=== PATIENT | female | born 1945 | race Caucasian/White ===

== ENCOUNTER 2024-09-10 02:12 | Inpatient (IN) | payer MEDICARE ==
[~2024-09-10] VITALS: Ht 157.5 cm; Wt 69.0 kg
[~2024-09-10 02:12] MED LIST: PANT40SU2 PO
--- NOTE | 2024-09-10 02:34 | Physician Documentation ---
History of Present Illness ~ Chief Complaint: Stroke Alert Stated Complaint: FALL Time Seen by MD: 02:31 Primary Medical Doctor: none HPI Patient presents to the emergency room for evaluation after fall. She states she was walking when her left knee gave out striking her chest on the wooden floor. She also endorses weakness in her left lower extremity left upper extremity and slurred speech onset three days ago. She does not take any medicines and denies any past medical history Medication Reconciliation Allergies: Coded Allergies: No Known Allergies (Unverified , 06/20/13) Scheduled Pantoprazole Sodium (Protonix), 40 MG PO BID Past Medical History Past Medical History: Gastritis, Anemia Past Surgical History: no surgical history Lives In: Home Review of Systems ROS All review of systems negative except as per HPI Physical Exam Vital Signs: Temperature: 97.8, Source: Oral, Heart Rate: 74, Respiratory Rate: 18, BP: 137/94, Pulse Oximetry: 96, Weight: 69.000 General Appearance General: Patient is awake, alert, oriented x4 in no acute distress Head: Normocephalic and atraumatic. Eyes: Conjunctival normal. EOMI. PERRL. ENT: Mucous membranes moist. Slurred speech, left facial droop Neck: Supple, trachea is midline. Chest: Clear to auscultation bilaterally without rales, rhonchi, or wheezes. There is no accessory muscle use or retractions. Tenderness to palpation to central chest Cardiac: RRR without murmurs, gallops, or rubs. Neuro: Slurring of speech and left facial droop Progress Results/Orders Results/Orders Orders - ADAN MORAES MD Electrocardiogram (09/10/24 02:31) Type And Screen (09/10/24 02:31) Urinalysis, Cult If Indicated (09/10/24 02:31) Chest,Single View (09/10/24 02:35) Ct Stroke Alert (09/10/24 02:50) * Vital Signs Routine* [id number] (09/10/24 02:31) * Blood Glucose Assessment * ONCE (09/10/24 02:31) * Npo Until Passed Bedside Swa (09/10/24 02:31) Nursing Swallow Screen (09/10/24 02:31) Hs Troponin I W Calculations (09/10/24 04:32) Hs Troponin I W Calculations (09/10/24 05:32) Completed Orders - ADAN MORAES MD Cbc/Diff (09/10/24 02:31) BMP (09/10/24 02:31) Pt Inr (09/10/24 02:31) PTT (09/10/24 02:31) Chest,Single View (09/10/24 02:35) Ct Stroke Alert (09/10/24 02:50) Hs Troponin I W Calculations (09/10/24 02:32) Vital Signs 09/10/24 09/10/24 09/10/24 02:19 02:59 02:59 Temp 97.8 Pulse 74 79 Resp 18 15 16 B/P (MAP) 137/94 137/94 Pulse Ox 96 96 Laboratory Tests Test 09/10/24 02:38 White Blood Count 6.9 Red Blood Count 4.94 Hemoglobin 15.6 Hematocrit 45.0 Mean Corpuscular Volume 91.1 Mean Corpuscular Hemoglobin 31.5 H Mean Corpuscular Hemoglobin Concent 34.6 Red Cell Distribution Width 14.3 Platelet Count 239 Mean Platelet Volume 8.1 Neutrophils (%) (Auto) 82.7 H Lymphocytes (%) (Auto) 10.5 L Monocytes (%) (Auto) 4.4 Eosinophils (%) (Auto) 1.5 Basophils (%) (Auto) 0.9 Neutrophils # (Auto) 5.7 Lymphocytes # (Auto) 0.7 L Monocytes # (Auto) 0.3 Eosinophils # (Auto) 0.1 Basophils # (Auto) 0.1 CBC Comment Prothrombin Time 10.4 INR International Normalized Ratio 1.0 Activated Partial Thromboplast Time 25 Coagulation Comments Sodium Level 144 Potassium Level 3.3 L Chloride Level 106 Carbon Dioxide Level 29.5 Anion Gap 9 Blood Urea Nitrogen 11 Creatinine 1.31 H Estimated GFR/1.73 m2 39 BUN/Creatinine Ratio 8.4 L Glucose Level 135 H Calcium Level 9.2 Troponin I High Sensitivity 12 Albumin 3.8 Chemistry Comments Medical Decision Making Findings Patient presented to the emergency room with fall with resulting chest pain as well as stroke-like symptoms onset three days ago. Differentials include but are not limited to ACS, stroke, Art's palsy, musculoskeletal pain, pneumothorax therefore emergent labs and imaging indicated. CT scan negative. Tele neurology consulted recommends admission and MRI. Departure Admitted to Inpatient Unit: yes, to hospitalist Impression: Primary Impression: Cerebral infarction Additional Impression: Chest wall pain Condition: Guarded Referrals: NO PRIMARY CARE PROVIDER (PCP) Critical Care Note Total Time (mins): 45 Critical Care Note The very real possibility of a deterioration of this patient's condition required the highest level of my preparedness for sudden, emergent intervention. I provided critical care services, which included medication orders, frequent reevaluations of the patient's condition and response to treatment, ordering and reviewing test results, and discussing the case with various consultants. Excludes time spent performing separately billable procedures. The critical care time associated with the care of the patient was 45 minutes not counting procedures Signature Scribe Signature: No scribe Attestation: The note accurately reflects work and decisions made by me.Adan Moraes MD 09/10/24 03:18 ADAN MORAES MD Sep 10, 2024 02:34
[2024-09-10 02:45] LABS: MEAN PLATELET VOLUME 8.1 FL (7.4-10.4); RED CELL DISTRIBUTION WIDTH 14.3 % (11.5-14.5)
[2024-09-10 02:53] LABS: CREATININE 1.31 MG/DL (0.40-0.90); TOTAL CARBON DIOXIDE 29.5 MMOL/L (24-32); eCRCL 28 ML/MIN; eGFR 39 ML/MIN
[2024-09-10 02:57] LABS: APTT 25 SECONDS (22-32); INR 1.0 INR
--- NOTE | 2024-09-10 03:11 | RADIOLOGY REPORT ---
CHEST RADIOGRAPH Indication: Stroke Alert Technique: Single frontal view of the chest was obtained COMPARISON: None FINDINGS: Lines and Tubes: None Lungs: Clear Pleura: No effusion. No pneumothorax. Cardiomediastinal contours: Cardiomegaly. Bones: Unremarkable IMPRESSION: 1. No acute disease. Cardiomegaly.
--- NOTE | 2024-09-10 03:11 | RADIOLOGY REPORT ---
EXAM: CT CT STROKE ALERT INDICATION: slurred speech, LUE weakness TECHNIQUE: CT of the head without intravenous contrast. Radiation Dose : 1. Head: CT Dose: CTDI volume is 52.67 mGy. Dose-length product is 941.43 mGy*cm The dose indicators for CT are the volume Computed Tomography (CT) Dose Index (CTDIvol) and the Dose Length Product (DLP), and are measured in units of mGy and mGy-cm, respectively. These indicators are not patient dose, but values generated from the CT scanner acquisition factors. The report includes radiation exposure data for exposures received during this examination. COMPARISON: None FINDINGS: There is no evidence of acute intracranial hemorrhage, extra-axial collection, mass effect, midline s hift, herniation or hydrocephalus. Focal medial left occipital encephalomalacia likely related to a remote insult. The ventricles, sulci and cisterns are age appropriate. The hills-white differentiation is intact. Patchy periventricular and subcortical white matter hypoattenuation is nonspecific but may be related to small vessel ischemic disease. The visualized paranasal sinuses and mastoid air cells are clear. The surrounding soft tissues and osseous structures are unremarkable. IMPRESSION: 1. No acute intracranial abnormality. 2. Focal medial left occipital encephalomalacia secondary to remote insult. Radiation optimization: All CT scans at this facility use at least one of these dose optimization allison hniques: automated exposure control mA and/or kV adjustment per patient size (includes targeted exam s where dose is matched to clinical indication) or iterative reconstruction.
[2024-09-10] MEDS ORDERED: potassium Cl 20 mEq SR tablet PO PRN (03:30)
[2024-09-10] MEDS ORDERED: bisacodyl 10mg suppository rectal RC PRN (03:30)
[2024-09-10] MEDS ORDERED: HYDROcodone/acetaminophen 10/325mg tab PO PRN (03:30)
[2024-09-10] MEDS ORDERED: HYDROmorphone inj. 0.5 MG/0.5 ML DISP.SYRIN IV PRN (03:30)
[2024-09-10] MEDS ORDERED: magnesium Cl slow-release 64mg tablet PO PRN (03:30)
[2024-09-10] MEDS ORDERED: magnesium sulf-water 4G/100mL 100 ML IV PRN (03:30)
[2024-09-10] MEDS ORDERED: HYDROcodone/acetaminophen 5mg/325mg tablet PO PRN (03:30)
[2024-09-10] MEDS ORDERED: mag hydrox/Alum hydrox/simeth 30ml oral suspension PO PRN (03:30)
[2024-09-10] MEDS ORDERED: magnesium sulf-water 2g/50mL 50 ML IV PRN (03:30)
[2024-09-10] MEDS ORDERED: potassium Cl 40MEQ/1/2NS 520ml 520 ML IV PRN (03:30)
[2024-09-10] MEDS ORDERED: clopidogrel 300mg tablet PO ONE (03:35)
--- NOTE | 2024-09-10 03:49 | [facility] CONSULT REPORT ---
[facility] Procedure [facility] Procedure Note Consult [facility] Note # Demographics Consult Type: Acute Stroke Level 2 (4.5-24 hrs) Patient Location: Emergency Room First Name: AGUSTIN Last Name: DOMINGA Date of : 1945 Age: 79 Gender: Female Facility: [facility] Time of Initial Page (): 09/10/2024 03:05 Time of Return Call (): 09/10/2024 03:05 # HPI History: LKN- 3 days Patient coming to the ER for chest pain. Patient also had slurred speech, face drooping, and left upper extremity weakness. # Scores Time of exam and NIHSS (): 09/10/2024 03:34 Level of Consciousness 1a: [0] = Alert; keenly responsive LOC Questions 1b: [0] = Answers both questions correctly LOC Commands 1c: [0] = Performs both tasks correctly Best Gaze 2: [0] = Normal Visual 3: [0] = No visual loss Facial Palsy 4: [1] = Minor paralysis Motor Arm Left 5a: [1] = Drift Motor Arm Right 5b: [0] = No drift Motor Leg Left 6a: [1] = Drift Motor Leg Right 6b: [0] = No drift Limb Ataxia 7: [0] = Absent Sensory 8: [0] = Normal Best Language 9: [0] = No aphasia Dysarthria 10: [1] = [id number] dysarthria Extinction and Inattention 11: [0] = No abnormality NIHSS Total: 4 # Assessment Impression: - Ischemic Stroke (Acute) # Plan Thrombolytic/Intervention: NOT IV Thrombolysis or IA Intervention candidate Thrombolytic Exclusion: > 4.5 hours Intraarterial Exclusion: - other LKN- 3 days ago, low GFR Target Blood Pressure: - SBP < 180 - SBP > 140 Labs: - hemoglobin A1c - lipid panel - comprehensive metabolic panel - CBC Imaging: (urgency: routine): - MRI Brain without contrast - MR Angiogram Neck with contrast - MR Angiogram Head without contrast Diagnostic Test: - echo without bubble study Therapy/Evaluation: - NPO until swallow evaluation - PT/OT evaluation Medication: - aspirin 81 mg PLUS clopidogrel (Plavix) 75 mg for 21 days, then monotherapy therafter - start statin with goal of LDL < 70 Other: - If patient has any neurological deterioration please call me back immediately - permissive hypertension - LDL < 70 - telemetry monitoring - will need event monitor or loop recorder as outpatient if atrial fibrillation not found as inpatient - neurology referral as outpatient - I have discussed my recommendations with the referring provider Disposition: admit # Logistics Attestation of consult completion: The patient is located at: [facility]. Facility staff participated in the visit. I performed this telemedicine visit from my offsite office utilizing interactive 2 way audio and visual telecommunication technology. Total time spent in telemedicine encounter: I spent 15 minutes reviewing clinical data and/or imaging, obtaining history, examining the patient, communicating with the onsite care team, and in preparation of this report. # Demographics First Name: AGUSTIN Last Name: DOMINGA Facility: [facility] Neuro Consult Order placed for: Yes KEITH BECK MD Sep 10, 2024 03:49
[2024-09-10] MEDS: PERFLUTREN PROTEIN-A MICROSPHR (Optison) 0.22 MG/ML 3ML VIAL IV ONE (03:56)
[2024-09-10] MEDS: normal saline 1000ml 1,000 ML IV SCH (03:56)
[2024-09-10] MEDS ORDERED: hydrALAZINE 20mg/ml inj. IV PRN (04:00)
[2024-09-10 04:04] LABS: PRO BRAIN NATRIURETIC PEPTIDE 1636 PG/ML (0-450)
[2024-09-10] MEDS: hydrALAZINE 20mg/ml inj. IV PRN (04:10)
[2024-09-10] MEDS: ondansetron/PF 4mg/2ml inj IV PRN (04:24)
--- NOTE | 2024-09-10 04:28 | HISTORY AND PHYSICAL-Residence ---
History & Physical Providers to CC Resident Creating Document: LUIS ALBERTO PABON, RES ~ History of Present Illness Primary Medical Doctor: none Reason for Admit\Complaint: Stroke-like symptoms History of Present Illness This is a 79-year-old female with a history of GI bleed presents to the ED with a chief complaint of stroke-like symptoms and ground level fall today. Patient states that three days ago she developed slurring of speech, left upper extremity and lower extremity weakness. This morning she also gave about her left knee and had a mechanical ground level fall. She fell on her chest and has some chest wall pain associated with the fall. She did not hit her head or lose consciousness and is not on any blood thinners. She denies any shortness of breath, palpitations, dizziness or syncope. She is able to tell the date, time, place, spell words, perform calculations, recall the name of president, her date of . However she is not able to swallow yet, and had a near choking episode during evaluation. Patient denies any history of TIA, stroke, heart attack, hypertension, atrial fibrillation. She does not have a PCP and lives alone at home, ambulates independently. She does not have any next of kin. ED course: EKG showed atrial fibrillation with RVR, this is new onset and does not have a history of atrial fibrillation and does not take any medications or blood thinners for it. Her blood pressure was over 220/110 mmHg in the ED throughout. Tele neurology was consulted and they recommended aspirin and Plavix for 21 days, MRI, MRA and blood pressure target range between 140-[address] did not show any acute intracranial abnormalities but did show some left occipital encephalomalacia related to remote stroke. Allergies: Coded Allergies: No Known Allergies (Unverified , 06/20/13) Home Medications Home Medications Active Protonix (Pantoprazole Sodium) 40 Mg Suspdr.pkt 40 Mg PO BID 30 Days Past Medical History Past Medical History GI bleed Past Surgical History Surgical History Comment None Past Social History Social History Comment Smokes about one pack every 2-3 days since the last 4-5 years, denies any alcohol or drug use Lives In: Home ROS ROS Reviewed and found negative except for the pertinent positives in HPI Exam Vitals: Vital Signs Date Time Temp Pulse Resp B/P (MAP) Pulse Ox O2 Delivery O2 Flow Rate FiO2 09/10/24 04:10 87 09/10/24 03:45 97.8 25 228/105 (325) 96 General: General: Patient is awake, alert, oriented x4 in no acute distress Head: Normocephalic and atraumatic. Eyes: Conjunctival normal. EOMI. PERRL. ENT: Mucous membranes moist. Slurred speech, left facial droop Neck: Supple, trachea is midline. Chest: Clear to auscultation bilaterally without rales, rhonchi, or wheezes. There is no accessory muscle use or retractions. Tenderness to palpation to central chest Cardiac: RRR without murmurs, gallops, or rubs. Neuro: Slurring of speech and left facial droop. Motor strength is 3/5 in left side and 5/5 in the right side. Sensory examination is equal on both sides. Cranial nerve examination is normal. Diagnostic Data Last Recorded Lab Results: 09/10/2423709/10/248 Diagnostic Data: Laboratory Tests Test 09/10/24 02:38 Prothrombin Time 10.4 SECONDS (9.0-12.0) INR International Normalized Ratio 1.0 INR Activated Partial Thromboplast Time 25 SECONDS (22-32) Coagulation Comments Advance Care Planning Advanced Care plannin - 30 Minutes (I spent a total of 17 minutes on reviewing various resuscitative measures/ ACP with the patient at the time of admission. The patient has decided on a full code status) Additional Plan Acute CVA Ground level fall secondary to above Patient has left-sided facial droop, left-sided weakness. NIHSS score four. Motor strength 3/5 on left side and 5/5 on right side. Patient received aspirin 81 mg, Plavix 300 mg followed by aspirin 81 mg and Plavix 75 mg daily for 21 days Neurology recommends aspirin, Plavix, MRI, MRA, echo cardiogram. NPO till she passes bedside swallow evaluation. Physical therapy/occupational therapy CT head negative for acute intracranial abnormalities but shows left occipital encephalomalacia. No evidence of bleed on CT. Fall precautions in place. New onset atrial fibrillation EKG shows atrial fibrillation with RVR. Abhi Vasc score greater than two. Started the patient on metoprolol 25 mg p.o. daily and Eliquis 5 mg b.i.d. Severe hypertension Blood pressure is greater than 220/110 mmHg in the ED, patient received 5 mg IV hydralazine to keep the parameters between 140-180 mmHg as recommended by the neurologist. History of GI bleed Restart home medication Protonix in the view of aspirin causing recurrent GI bleed Code Status: Full code DVT Prophylaxis: Eliquis Analgesia/Sedation: Tylenol p.r.n. Lines/Tubes: PIV Gi Prophylaxis: Protonix Nutrition: NPO till bedside swallow evaluation PT: Yes Prognosis: Guarded Disposition: Admit to neuro floor with classroom monitor Luis Alberto Coffman MD Internal Medicine Resident PGY-2 Date of Service: Sep 10, 2024 Billing Provider: JESSICA HARDEN MD,LUIS ALBERTO COFFMAN, RES Sep 10, 2024 04:28 JESSICA HARDEN MD Sep 10, 2024 06:05
[2024-09-10 05:15] VITALS: BP 141/75; PULSE 95; RESP 15; TEMP 98.4; O2SAT 94
[2024-09-10] MEDS: docusate sod 100mg capsule PO SCH (07:18)
[2024-09-10] MEDS: potassium Cl 20 mEq SR tablet PO PRN (07:19)
[2024-09-10] MEDS: aspirin 81mg, enteric-coated 1 TAB TABLET.DR PO SCH (07:19)
[2024-09-10] MEDS: K and/or MAG REPLACEMENT MC SCH (07:30)
--- NOTE | 2024-09-10 07:47 | ELECTROCARDIOGRAPH REPORT ---
[facility] Test Date: 2024-09-10 Test Time: 02:35:05 Pat Name: AGUSTIN ORR Department: EMERGENCY ROOM Room: ORTHO [facility] A Gender: F Special Distribution Clerk: : 1945 Requested By: JOSÉ HAMILTON Order Number: [id number] Reading MD: Dr. Juan Miller Measurements Intervals [place] Rate: 97 P: 0 MT: 0 QRS: -31 QRSD: 110 T: 48 QT: 353 QTc: 449 Interpretive Statements Atrial fibrillation Ventricular premature complex Left axis deviation Anterior infarct, old Electronically Signed On 09-10-2024 8:05:[address] Juan Miller Please click the below link to view image of tracing.
[2024-09-10 08:00] VITALS: BP 124/68; PULSE 64
[2024-09-10] MEDS ORDERED: heparin, porcine 5000 units/ml vial SQ SCH (08:00)
[2024-09-10 10:00] VITALS: BP 137/80; PULSE 81; RESP 16; TEMP 97.7; O2SAT 93
--- NOTE | 2024-09-10 11:37 | [facility] NEURO CONSULT REPORT ---
[facility] Procedure Note [facility] Procedure Note Consult [facility] Note # Demographics Consult Type: Follow-Up Phone Call Patient Location: Inpatient First Name: Nichol Last Name: Diana Date of : 1945 Age: 79 Facility: [facility] Time of Initial Page ([place] ): 09/10/2024 11:27 Time of Return Call (): 09/10/2024 11:28 Phone Only Consult: 79-year-old female with a history of arthritis, presented with stroke-like symptoms, including left upper and lower extremity weakness. She experienced a fall at home, which prompted her hospital visit. Upon arrival, her blood pressure was notably elevated at 220 mmHg. The patient reported living alone and having difficulty affording her prescribed Eliquis medication, leading to non-adherence. Initial CT imaging ruled out an acute stroke, and an MRI was ordered for further evaluation. Her current NIHSS score is 4. The patient was initially started on aspirin and plavix by the prior teleneurologist. Recommendations: Patient doesn't need to be on ASA, Plavix and Eliquis. Please discontinue Plavix and hold off on Eliquis for now. Please wait for MRI brain wo to be done to assess size of infarct before starting Eliquis. OK to just continue with ASA 81 mg daily for now. Please call us back once MRI has been done. Phone Agreement: - phone consult deemed mutually sufficient for patient care # Plan Other: - If patient has any neurological deterioration please call me back immediately # Demographics First Name: Nichol Last Name: Diana Facility: [facility] Neuro Consult Order placed for: Yes ANDREA BAILEY MD Sep 10, 2024 11:37
--- NOTE | 2024-09-10 11:41 | RADIOLOGY REPORT ---
EXAM: CT CTA NECK/HEAD DATE OF SERVICE: 09/10/2024 10:14 AM ORDERING PHYSICIAN: BLAIR MCKEON REASON FOR EXAM: Stroke-like symptoms TECHNIQUE: CTA of the brain and neck was performed after the administration of contrast . Axial imag es of the head and neck are obtained. Coronal and sagittal images were then reformatted for review. M IP reformats were obtained and reviewed. 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 The right common carotid artery demonstrates moderate calcification of the right carotid bulb. Right internal carotid artery demonstrates no high-grade stenosis. Right middle cerebral artery demonstrates no high-grade stenosis. The right anterior cerebral artery demonstrates no high-grade stenosis. The left common carotid artery demonstrates no high-grade stenosis. There is mild calcification of th e left carotid bulb. Left internal carotid artery demonstrates no high-grade stenosis. The left middle cerebral artery demonstrates no high-grade stenosis. The left anterior cerebral artery demonstrates no high-grade stenosis. The right vertebral artery demonstrates 50% stenosis of the proximal right vertebral artery/V1 segmen t. The left vertebral artery demonstrates 50% stenosis of the proximal left vertebral artery at its orig in. Basilar artery demonstrates no high-grade stenosis. The bilateral posterior cerebral arteries demonstrate no high-grade stenosis. IMPRESSION: No large vessel high-grade stenosis of the anterior circulation. Moderate stenosis of the bilateral vertebral stenoses at the origins/proximally. 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
--- NOTE | 2024-09-10 12:53 | RADIOLOGY REPORT ---
MRI brain HISTORY: Stroke-like symptoms Comparison: CT brain 09/10/2024 TECHNIQUE: MR was performed with a surface coil at 1.5 T magnet. Sagittal, axial and coronal T1 and T 2-weighted images were obtained. FINDINGS: Small area of restricted diffusion in the lower right midbrain and garrick on diffusion-weigh wesley images. No areas of abnormal T2 star signal hypointensity on gradient echo images. There is an area of encephalomalacia in the left occipital lobe. Periventricular signal intensity carter nges probably due to gliosis from chronic ischemic small vessel disease. Gliosis also seen in the rig ht occipital lobe No hydrocephalus or midline shift Cortical sulcal markings are prominent. No extra-axial fluid collections Orbits paranasal sinuses sella and cerebellopontine angles unremarkable in appearance IMPRESSION: 1. Small area of acute ischemia and/or infarction upper right brainstem
--- NOTE | 2024-09-10 13:48 | [facility] NEURO CONSULT REPORT ---
[facility] Procedure Note [facility] Procedure Note Consult [facility] Note # Demographics Consult Type: Follow-Up Phone Call Patient Location: Inpatient First Name: DOMINGA Last Name: AGUSTIN Date of : 1945 Age: 79 Gender: Female Facility: [facility] Time of Initial Page ([place] ): 09/10/2024 13:39 Time of Return Call ([place] Time): 09/10/2024 13:40 Phone Only Consult: 79-year-old female with a history of arthritis, presented with stroke-like symptoms, including left upper and lower extremity weakness. MRI Brain wo showed a small acute infarct involving the right midbrain and garrick. Recommendations: Plavix has been stopped. Patient is on ASA 81 mg daily. She does have atrial flutter so needs to be on anticoagulation. Was previously on Eliquis but stopped it due to cost reasons. If patient cannot afford NOAC then would choose Warfarin/Coumadin. Still continue with ASA while on anticoagulation. She has significant atherosclerosis in her arteries and would likely benefit from ASA as well. If she can afford NOAC, then Eliquis is fine a nd continue with ASA. Phone Agreement: - phone consult deemed mutually sufficient for patient care # Plan Other: - If patient has any neurological deterioration please call me back immediately # Demographics First Name: DOMINGA Last Name: AGUSTIN Facility: [facility] Neuro Consult Order placed for: Yes ANDREA BAILEY MD Sep 10, 2024 13:48
[2024-09-10 18:00] VITALS: BP 130/72; PULSE 61; RESP 14; TEMP 97.8; O2SAT 92
--- NOTE | 2024-09-10 18:02 | PROGRESS NOTE- Residence ---
Progress Note - Resident Providers to CC Resident Creating Document: LIVIER BEDOLLA RES ~ Antibiotic Timeout Antibiotic Ordered?: No Subjective Patient was seen and examined at the bedside. Patient is still has a left facial droop and slurring of speech. Objective Vital Signs Date Time Temp Pulse Resp B/P (MAP) Pulse Ox O2 Delivery O2 Flow Rate FiO2 09/10/24 08:00 Room Air 09/10/24 08:00 64 124/68 (86) 09/10/24 05:15 98.4 15 94 Result Diagram: 09/10/24 0238 09/10/24 0506 General: Patient is awake, alert, oriented x4 in no acute distress Head: Normocephalic and atraumatic. Eyes: Conjunctival normal. EOMI. PERRL. ENT: Mucous membranes moist. Slurred speech, left facial droop Neck: Supple, trachea is midline. Chest: Clear to auscultation bilaterally without rales, rhonchi, or wheezes. There is no accessory muscle use or retractions. Tenderness to palpation to central chest Cardiac: RRR without murmurs, gallops, or rubs. Neuro: Slurring of speech and left facial droop. Motor strength is 4/5 in left side and 5/5 in the right side. Sensory examination is equal on both sides. Cranial nerve examination is normal. Coagulation Studies Laboratory Tests Test 09/10/24 02:38 Prothrombin Time 10.4 SECONDS (9.0-12.0) INR International Normalized Ratio 1.0 INR Activated Partial Thromboplast Time 25 SECONDS (22-32) Coagulation Comments Advance Care Planning Advanced Care plannin - 30 Minutes Assessment Assessment This is a 79-year-old female with a history of GI bleed and Afib presents to the ED with a chief complaint of stroke-like symptoms and ground level fall today. Plan Plan Acute Ischemic CVA Patient has left-sided facial droop, left-sided weakness. NIHSS score-4. Motor strength 4/5 on left side(better compared to yesterday) and 5/5 on right side. Patient passed her swallow test today. CT head negative for acute intracranial abnormalities but shows left occipital encephalomalacia. No evidence of bleed on CT. Head/Neck CT: No large vessel high-grade stenosis of the anterior circulation. Moderate stenosis of the bilateral vertebral stenoses at the origins/proximally. Head MRI: Small area of acute ischemia and/or infarction upper right brainstem ECHO with bubble study was done and reports showed EF of 65% and no left to right flow,ruling out PTO Neurology team was consulted and recommended to continue the patient on aspirin 81mg and Eliquis 5mg BID. Aspirin was added due to atherosclerotic changes in the brain as per Neurologist recommendation. Atrial fibrillation EKG shows atrial fibrillation with RVR. Abhi-Vasc score-4 Neurologist recommended patient to be on aspirin and Eliquis. Ground level fall secondary to CVA Patient has a slight chest pain due to the fall. Physical therapy has been working with the patient Fall precautions in place. Hypertension urgency Blood pressure is greater than 220/110 mmHg in the ED, patient received 5 mg IV hydralazine to keep the parameters between SBP 140-180 mmHg as recommended by the neurologist Patient's blood pressure is controlled. Hydralazine has been discontinued the patient is on amlodipine 5mg P.O History of GI bleed Home medication protonix to be continued in the view of aspirin causing recurrent GI bleed Kidney disease Eval for OLE with daily metabolic panels Code Status: Full code DVT Prophylaxis: Eliquis Analgesia/Sedation: Tylenol p.r.n. Lines/Tubes: PIV Gi Prophylaxis: Protonix Nutrition: Heart healthy diet PT: Yes Prognosis: Guarded Disposition:Patient has been recommended to go to the rehab by physical therapy. Livier Bedolla MD Internal Medicine Resident PGY-1 Date of Service: Sep 10, 2024 Billing Provider: BLAIR MCKEON DO Common Visit Codes: NOT BILLABLE (Admitted after midnight to be billed by physical science professor) LIVIER BEDOLLA, RES Sep 10, 2024 18:02 BLAIR MCKEON DO Sep 10, 2024 19:18
[2024-09-10 22:00] VITALS: BP 176/95; PULSE 76; RESP 20; TEMP 98; O2SAT 95
[2024-09-11] VITALS (7 sets, daily range): BP systolic 127–212; BP diastolic 74–158; PULSE 70–89; RESP 14–18; TEMP 97.6–98.4; O2SAT 93–95
[2024-09-11 05:21] LABS: LEUKOCYTE ESTERASE ,URINE NEGATIVE (Neg); NITRITES, URINE NEGATIVE (Neg); OCCULT BLOOD,URINE NEGATIVE (Neg)
[2024-09-11 05:26] LABS: MEAN PLATELET VOLUME 8.3 FL (7.4-10.4); RED CELL DISTRIBUTION WIDTH 14.5 % (11.5-14.5)
[2024-09-11 05:37] LABS: CHOL/HDL RATIO 3.8 (0.00-4.99); CREATININE 0.89 MG/DL (0.40-0.90); LDL CHOLESTEROL 96 MG/DL (50-100); TOTAL CARBON DIOXIDE 25.9 MMOL/L (24-32); eCRCL 41 ML/MIN; eGFR 61 ML/MIN
[2024-09-11 05:40] LABS: UA COLLECTION TYPE CLN CATCH MIDSTREAM
[2024-09-11] MEDS ORDERED: PANT40GR PO (11:30)
--- NOTE | 2024-09-11 16:32 | CONSULTATION REPORT ---
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 History of present illness: This is a 79-year-old female with a history of GI bleed presents to the ED with three days of slurring of speech, left upper extremity and lower extremity weakness. On the morning of admission she also developed instability of the left knee and had a mechanical ground level fall. She fell on her chest and has some chest wall pain associated with the fall. She did not hit her head or lose consciousness and is not on any blood thinners. She denies any shortness of breath, palpitations, dizziness or syncope. She is able to tell the date, time, place, spell words, perform calculations, recall the name of president, her date of . However she is not able to swallow yet, and had a near choking episode during evaluation. Patient denies any history of TIA, stroke, heart attack, hypertension, atrial fibrillation. She does not have a PCP and lives al one at home, ambulates independently. She does not have any next of kin. ED course: EKG showed atrial fibrillation with RVR, this is new onset and does not have a history of atrial fibrillation and does not take any medications or blood thinners for it. Her blood pressure was over 220/110 mmHg in the ED throughout. Tele neurology was consulted and they recommended aspirin and Plavix for 21 days, MRI, MRA and blood pressure target range between 140-[address] did not show any acute intracranial abnormalities but did show some left occipital encephalomalacia related to remote stroke. 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 There was no obvious thrombus in the aneurysm. An echocardiogram is pending at the time of dictation to evaluate for any intracardiac shunting or left atrial appendage thrombus, and there may be plans to anticoagulate with apixaban. Allergies: None Current medications: Notable for Losartan Amlodipine Low-dose aspirin Atorvastatin Past Medical History Past Medical History GI bleed Past Surgical History Surgical History Comment None Past Social History Social History Comment Smokes about one pack every 2-3 days since the last 4-5 years, denies any alcohol or drug use Lives In: Home ROS ROS Reviewed and found negative except for the pertinent positives in HPI. Neurology has plan for permissive hypertension with an upper systolic blood pressure goal of 160 mm Hg. Exam Vitals: Vital Signs Current systolic blood pressure is 180 mm Hg General: Patient is awake, alert, oriented x4 in no acute distress. Head: Normocephalic and atraumatic. Eyes: Conjunctival normal. EOMI. PERRL. ENT: Mucous membranes moist. Slurred speech, left facial droop Neck: Supple, trachea is midline. Chest: Clear to auscultation bilaterally without rales, rhonchi, or wheezes. There is no accessory muscle use or retractions. Tenderness to palpation to central chest Cardiac: RRR without murmurs, gallops, or rubs. Neuro: Slurring of speech and left facial droop. Motor strength is 3/5 in left side and 5/5 in the right side. Sensory examination is equal on both sides. Cranial nerve examination is normal. Assessment and plan: 1. No specific therapy, particularly invasive therapy, as indicated for an arch aneurysm of this small diameter. 2. Given the presence of extensive atherosclerosis, it is probably, although not absolutely lower risk for expansion as long as the patient's blood pressure is maintained less than at the time of her presentation. Recognizing that the neurology service has advocated some permissive hypertension, I would shoot for a systolic blood pressure goal of 140-150 mm Hg. 3. There is no contraindication that this aneurysm poses to starting anticoagulation, and the risk benefit of anticoagulation in the setting of atrial fibrillation and a cerebrovascular accident (without hemorrhage) is clearly in favor of anticoagulation. I very much appreciate this consultation opportunity. Visit Coding Cardiology Date of Service: Sep 11, 2024 Billing Provider: ISABELLE THEODORE Jr., MD Cardiology Evaluation and Smita: CONSULT ONLY Cardiology Consultation Codes: [id number] CONSULT <45MIN ISABELLE THEODORE Jr., MD Sep 11, 2024 16:32
--- NOTE | 2024-09-11 18:28 | PROGRESS NOTE- Residence ---
Progress Note - Resident Providers to CC Resident Creating Document: LIVIER BEDOLLA RES ~ Antibiotic Timeout Antibiotic Ordered?: No Subjective Patient was seen and examined at the bedside. Patient still has a left facial droop and slurring of speech. Objective Vital Signs Date Time Temp Pulse Resp B/P (MAP) Pulse Ox O2 Delivery O2 Flow Rate FiO2 09/11/24 10:00 98.4 77 16 160/88 (112) 95 Room Air Result Diagram: 09/11/249 09/11/249 General: Patient is awake, alert, oriented x4 in no acute distress Head: Normocephalic and atraumatic. Eyes: Conjunctival normal. EOMI. PERRL. ENT: Mucous membranes moist. Slurred speech, left facial droop Neck: Supple, trachea is midline. Chest: Clear to auscultation bilaterally without rales, rhonchi, or wheezes. There is no accessory muscle use or retractions. Tenderness to palpation to central chest Cardiac: RRR without murmurs, gallops, or rubs. Neuro: Slurring of speech and left facial droop. Motor strength is 4/5 in left side and 5/5 in the right side. Sensory examination is equal on both sides. Cranial nerve examination is normal. Coagulation Studies Laboratory Tests Test 09/10/24 02:38 Prothrombin Time 10.4 SECONDS (9.0-12.0) INR International Normalized Ratio 1.0 INR Activated Partial Thromboplast Time 25 SECONDS (22-32) Coagulation Comments Advance Care Planning Advanced Care plannin - 30 Minutes Assessment Assessment This is a 79-year-old female with a history of GI bleed and Afib presents to the ED with a chief complaint of stroke-like symptoms and ground level fall today. Plan Plan Acute Ischemic CVA Patient has left-sided facial droop, left-sided weakness. NIHSS score-4. Motor strength 4/5 on left side(better compared to yesterday) and 5/5 on right side. Patient passed her swallow test today. CT head negative for acute intracranial abnormalities but shows left occipital encephalomalacia. No evidence of bleed on CT. Head/Neck CT: No large vessel high-grade stenosis of the anterior circulation. Moderate stenosis of the bilateral vertebral stenoses at the origins/proximally. Head MRI: Small area of acute ischemia and/or infarction upper right brainstem ECHO with bubble study was done and reports showed EF of 65% and no left to right flow,ruling out PTO Neurology team was consulted and recommended to continue the patient on aspirin 81mg and Eliquis 5mg BID. Aspirin was added due to atherosclerotic changes in the brain as per Neurologist recommendation. Patient's IV fluids have been stopped and amlodipine has been increased to 10 mg. 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 Cardiothoracic surgeon was consulted and recommended outpatient follow up and that this is small and no intervention is required, according to his interpretation he feels that the aortic arch is well calcified with a goal of systolic blood pressure less than 140s however systolic blood pressure under 150s is acceptable. Atrial fibrillation EKG shows atrial fibrillation with RVR. Abhi-Vasc score-4 Patient continues to be on aspirin and Eliquis. Ground level fall secondary to CVA Patient has a slight chest pain due to the fall. Physical therapy has been working with the patient Fall precautions in place. Hypertension urgency Blood pressure is greater than 220/110 mmHg in the ED, patient received 5 mg IV hydralazine to keep the parameters between SBP 140-180 mmHg as recommended by the neurologist Patient's blood pressure is elevated and amlodipine dose has been increased to 10 mg. History of GI bleed Home medication protonix to be continued in the view of aspirin causing recurrent GI bleed Kidney disease Eval for OLE with daily metabolic panels Code Status: Full code DVT Prophylaxis: Eliquis Analgesia/Sedation: Tylenol p.r.n. Lines/Tubes: PIV Gi Prophylaxis: Protonix Nutrition: Heart healthy diet PT: Yes Prognosis: Guarded Disposition:Patient has been recommended to go to the rehab by physical therapy. Livier Bedolla MD Internal Medicine Resident PGY-1 Date of Service: Sep 11, 2024 Billing Provider: BLAIR MCKEON DO Common Visit Codes: [id number] INP/OBS CARE(HIGH) LIVIER BEDOLLA, RES Sep 11, 2024 18:28 BLAIR MCKEON DO Sep 11, 2024 19:54
[2024-09-12 02:00] VITALS: BP 159/93; PULSE 83; RESP 16; TEMP 98.2; O2SAT 94
[2024-09-12 05:45] LABS: CREATININE 1.01 MG/DL (0.40-0.90); TOTAL CARBON DIOXIDE 25.9 MMOL/L (24-32); eCRCL 36 ML/MIN; eGFR 53 ML/MIN
[2024-09-12 06:00] VITALS: BP 159/87; PULSE 68; RESP 18; TEMP 98.2; O2SAT 90
[2024-09-12 06:23] LABS: MEAN PLATELET VOLUME 8.4 FL (7.4-10.4); RED CELL DISTRIBUTION WIDTH 14.7 % (11.5-14.5)
[2024-09-12 08:00] VITALS: BP_SYST 145; BP_SYST 153; BP_SYST 158; BP_DIAS 72; BP_DIAS 93; PULSE 73; PULSE 76; PULSE 77; RESP 16; O2SAT 97
[2024-09-12 10:00] VITALS: BP 137/76; PULSE 74; RESP 16; TEMP 97.6; O2SAT 93
--- NOTE | 2024-09-12 10:54 | PROGRESS NOTE- Residence ---
Progress Note - Resident Providers to CC Resident Creating Document: HETAL MITCHELL RES CC: BENJAMÍN BEDOLLA MD ~ Antibiotic Timeout Antibiotic Ordered?: No Subjective Patient was seen and examined at the bedside. NAOE. No new c/o. Informed to the patient regarding the plan to go to rehab. Patient still has a left facial droop and slurring of speech. Objective Vital Signs Date Time Temp Pulse Resp B/P (MAP) Pulse Ox O2 Delivery O2 Flow Rate FiO2 09/12/24 10:00 97.6 74 16 137/76 (96) 93 Room Air Result Diagram: 09/12/24 0506 09/12/24 0506 General: Elderly female, seen sitting in the recliner, AAO x4, not in apparent distress Head: Normocephalic with an atraumatic Eyes: Pupils- 3mm, reacting to light, conjunctiva- anicteric Nose and throat: No polyps, septum- normal, no mucosal ulcers Neck: Supple, no lymphadenopathy, no carotid bruit Respiratory: No use of accessory muscles of respiration, Bilateral normal vesiscular breath sounds heard. No wheeze, rhochi or creps Cardiac: S1-S2 heard, rythm regular, no gallop/murmur Abdomen: non distended, no tenderness, no organomegaly, bowel sounds- heard Extremities: no clubbing, no pedal edema, no deformities, peripheral pulses- 2+ Skin: warm and dry, no rash, no purpura Neuro: Speech is slurred, left facial droop,Motor strength is 4/5 in left side and 5/5 in the right side Coagulation Studies Laboratory Tests Test 09/10/24 02:38 Prothrombin Time 10.4 SECONDS (9.0-12.0) INR International Normalized Ratio 1.0 INR Activated Partial Thromboplast Time 25 SECONDS (22-32) Coagulation Comments Assessment Assessment This is a 79-year-old female with a history of GI bleed and Afib presents to the ED with a chief complaint of stroke-like symptoms and ground level fall today. 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 NIHSS score-4. Motor strength 4/5 on left side(better compared to yesterday) and 5/5 on right side. Patient passed her swallow test today. CT head negative for acute intracranial abnormalities but shows left occipital encephalomalacia. No evidence of bleed on CT. Head/Neck CT: No large vessel high-grade stenosis of the anterior circulation. Moderate stenosis of the bilateral vertebral stenoses at the origins/proximally. Head MRI: Small area of acute ischemia and/or infarction upper right brainstem ECHO with bubble study was done and reports showed EF of 65% and no left to right flow,ruling out PTO Neurology team was consulted and recommended to continue the patient on aspirin 81mg and Eliquis 5mg BID. Aspirin was added due to atherosclerotic changes in the brain as per Neurologist recommendation. 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 Cardiothoracic surgeon was consulted and recommended outpatient follow up and that this is small and no intervention is required, according to his interpretation he feels that the aortic arch is well calcified with a goal of systolic blood pressure less than 140s however systolic blood pressure under 150s is acceptable. Atrial fibrillation EKG shows atrial fibrillation with RVR. Abhi-Vasc score-4 current HR under control Patient continues to be on aspirin and Eliquis. Ground level fall secondary to CVA Patient has a slight chest pain due to the fall. Physical therapy has been working with the patient Fall precautions in place. Hypertension urgency- resolved Blood pressure is greater than 220/110 mmHg in the ED, patient received 5 mg IV hydralazine to keep the parameters between SBP 140-180 mmHg as recommended by the neurologist continue amlodipine 10 mg once daily added losartan 25 mg once daily History of GI bleed Home medication protonix to be continued in the view of aspirin causing recurrent GI bleed OLE likely prerenal 2/2- resolved, 2/2 renal tubular stasis cr down to baseline monitor i/o chart Code Status: Full code DVT Prophylaxis: Eliquis Analgesia/Sedation: Tylenol p.r.n. Lines/Tubes: PIV Gi Prophylaxis: Protonix Nutrition: Heart healthy diet PT: Yes Prognosis: Guarded Disposition- dc to rehab tomorrow Hetal Mitchell MD IM resident PGY3, [facility] Date of Service: Sep 12, 2024 Billing Provider: BENJAMÍN BEDOLLA MD, HARIVARSHA, RES Sep 12, 2024 10:54
[2024-09-12 18:30] VITALS: BP 123/49; PULSE 100; RESP 17; TEMP 97.9; O2SAT 97
[2024-09-12 22:00] VITALS: BP 125/74; PULSE 74; RESP 16; TEMP 97.6; O2SAT 90
[2024-09-13 06:00] VITALS: BP 120/70; PULSE 59; RESP 16; TEMP 97.5; O2SAT 92
[2024-09-13 07:17] LABS: MEAN PLATELET VOLUME 8.4 FL (7.4-10.4); RED CELL DISTRIBUTION WIDTH 14.4 % (11.5-14.5)
[2024-09-13 07:51] LABS: CREATININE 1.07 MG/DL (0.40-0.90); TOTAL CARBON DIOXIDE 21.1 MMOL/L (24-32); eCRCL 34 ML/MIN; eGFR 50 ML/MIN
[2024-09-13 10:00] VITALS: BP 124/71; PULSE 77; RESP 16; TEMP 98.2; O2SAT 94
[2024-09-13] MEDS: magnesium hydroxide 30ml (MOM) UD suspension PO PRN (11:05)
--- NOTE | 2024-09-13 16:19 | DISCHARGE SUMMARY-Residence ---
Discharge Summary Providers to Resident Creating Document: ZAIDA BEDOLLA, RES ~ Discharge Summary Assessment This is a 79-year-old female with a history of GI bleed,Afib presents to the ED with a chief complaint of stroke-like symptoms and ground level fall today. Admission Diagnosis: Stroke-like symptoms Admission Diagnosis Comment: This is a 79-year-old female with a history of GI bleed presents to the ED with a chief complaint of stroke-like symptoms and ground level fall today. Hospital Course DATE OF ADMISSION: 09/10/2024 DATE OF DISCHARGE: 09/13/2024 Discharge Diagnosis\Comment: Acute Ischemic CVA Atrial fibrillation Ground level fall secondary to CVA Hypertensive urgency History of GI bleed Acute Kidney Injury,vasomotor nephropathy Operations\Procedures: None Consultants: Neurologist-Dr.Quang Higgins([facility] telemetry), Cardiothoracic vascular surgeon- Complications: None Condition on DC: Stable for transfer Discharge Summary: IGIUGIG according to admitting physician:This is a 79-year-old female with a history of GI bleed presents to the ED with a chief complaint of stroke-like symptoms and ground level fall today. Patient states that three days ago she developed slurring of speech, left upper extremity and lower extremity weakness. This morning she also gave about her left knee and had a mechanical ground level fall. She fell on her chest and has some chest wall pain associated with the fall. She did not hit her head or lose consciousness and is not on any blood thinners. She denies any shortness of breath, palpitations, dizziness or syncope. She is able to tell the date, time, place, spell words, perform calculations, recall the name of president, her date of . However she is not able to swallow yet, and had a near choking episode during evaluation. Patient denies any history of TIA, stroke, heart attack, hypertension, atrial fibrillation. She does not have a PCP and lives alone at home, ambulates independently. She does not have any next of kin. Hospital course: Patient presented with left-sided facial droop, left-sided weakness.NIHSS score- 4.CT head was done which was negative for acute bleed on CT. Head/Neck CT showed:Small area of acute ischemia and/or infarction upper right brainstem.Head MRI showed no large vessel high-grade stenosis of the anterior circulation.Moderate stenosis of the bilateral vertebral stenoses at the origins /proximally. ECHO with bubble study was done and reports showed EF of 65% and no left to right flow,ruling out PTO. Patient continued to have a left facial droop with slurring of speech. Neurology team was consulted and recommended to continue the patient on aspirin 81mg and Eliquis 5mg BID. Aspirin was added due to atherosclerotic changes in the brain as per Neurologist recommendation. Patient was previously diagnosed with AFib and recommended Eliquis but but did not take it because of financial constraints. EKG done here showed atrial fibrillation with RVR on Abhi Vasc score of 4. Patient has been recommended to be on Eliquis and aspirin as per neurologist recommendation. During the ED visit patient had high blood pressure of 220/110 and she was treated with hydralazine which was later discontinued on patient continues to be on amlodipine 10 mg. Patient has a past history of GI bleed for which she continued to be on Protonix as she is on aspirin as well. Patient had a mild elevation of her creatinine possibly acute kidney injury which was later resolved during the course of the her hospital stay. 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 Vital Signs Date Time Temp Pulse Resp B/P (MAP) Pulse Ox O2 Delivery O2 Flow Rate FiO2 09/13/24 10:00 98.2 77 16 124/71 (88) 94 Room Air Laboratory Tests Test 09/12/24 05:06 09/13/24 07:05 White Blood Count 5.1 X10'3 5.2 X10'3 Red Blood Count 4.57 X10'6 4.58 X10'6 Hemoglobin 14.5 g/dl 14.4 g/dl Hematocrit 42.4 % 41.8 % Mean Corpuscular Volume 92.7 FL 91.3 FL Mean Corpuscular Hemoglobin 31.7 PG 31.4 PG Mean Corpuscular Hemoglobin Concent 34.1 g/dL 34.4 g/dL Red Cell Distribution Width 14.7 % 14.4 % Platelet Count 208 X10'3 208 X10'3 Mean Platelet Volume 8.4 FL 8.4 FL Neutrophils (%) (Auto) 76.4 % 74.3 % Lymphocytes (%) (Auto) 14.8 % 15.3 % Monocytes (%) (Auto) 5.6 % 7.1 % Eosinophils (%) (Auto) 2.5 % 2.4 % Basophils (%) (Auto) 0.7 % 0.9 % Neutrophils # (Auto) 3.9 X10'3 3.8 X10'3 Lymphocytes # (Auto) 0.8 X10'3 0.8 X10'3 Monocytes # (Auto) 0.3 X10'3 0.4 X10'3 Eosinophils # (Auto) 0.1 X10'3 0.1 X10'3 Basophils # (Auto) 0.0 X10'3 0.0 X10'3 CBC Comment Sodium Level 139 MMOL/L 137 MMOL/L Potassium Level 4.0 MMOL/L 4.1 MMOL/L Chloride Level 106 MMOL/L 103 MMOL/L Carbon Dioxide Level 25.9 MMOL/L 21.1 MMOL/L Anion Gap 7 13 Blood Urea Nitrogen 10 MG/DL 12 MG/DL Creatinine 1.01 MG/DL 1.07 MG/DL Estimated GFR/1.73 m2 53 ML/MIN 50 ML/MIN BUN/Creatinine Ratio 9.9 11.2 Glucose Level 88 MG/DL 109 MG/DL Calcium Level 8.6 MG/DL 8.6 MG/DL Magnesium Level 2.0 MG/DL 1.9 MG/DL Total Bilirubin 1.9 MG/DL 1.2 MG/DL Aspartate Amino Transf (AST/SGOT) 25 U/L 27 U/L Alanine Aminotransferase (ALT/SGPT) 16 U/L 16 U/L Alkaline Phosphatase 106 IU/L 103 IU/L Total Protein 6.5 G/DL 6.3 G/DL Albumin 3.4 G/DL 3.1 G/DL Globulin 3.1 G/DL 3.2 G/DL Albumin/Globulin Ratio 1.1 1.0 Chemistry Comments Significant imaging studies: CT head and neck: No large vessel high-grade stenosis of the anterior circulation. Moderate stenosis of the bilateral vertebral stenoses at the origins/proximally. 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 MRI HEAD: Small area of acute ischemia and/or infarction upper right brainstem. ECHO:LVEF is 65%. Negative saline study for right to left flow. Aortic valve is probably trileaflet with mild sclerosis. Trace insufficiency. Moderate mitral annular calcification without stenosis. Trace regurgitation. CT Head: No acute intracranial abnormality. Focal medial left occipital encephalomalacia secondary to remote insult. Discharge medications: Patient is being discharged to long-term facility with the following med ications: Amlodipine 10 mg Protonix 40 mg Apixaban 5 mg b.i.d. Lipitor 40 mg Aspirin 81 mg Discharge advise: Follow up with PCP, neurologist and [facility] surgeon within a week. Continue to be on aspirin and Eliquis until further instruction. *Problems/Diagnosis: (1) CVA (cerebral vascular accident) (2) OLE (acute kidney injury) Status: Resolved (3) Fall (4) Atrial fibrillation Total Time Spent on D/C: > 30 Minutes Date of Service: Sep 13, 2024 Billing Provider: BENJAMÍN BEDOLLA MD, JAHNAVI, RES Sep 13, 2024 15:32
--- NOTE | 2024-09-14 09:58 | CARDIOLOGY REPORT ---
APPROVED REPORT EXAM: Comprehensive 2D, Doppler, and color-flow Echocardiogram with saline Patient Location: 4[address] Blood Pressure: 141/75 mmHg Heart Rate: 94 bpm Indications CVA/TIA ProBNP: 1636 Hypertension NO CONCERT PIANIST Previous ECHO: 06/15/22, [facility], EF: 70-75; mLAE; mMR/TR 2D Dimensions IVSd 1.3 (0.7-1.1cm) LVDd 4.0 cm PWd 1.3 (0.7-1.1cm) IVSs 1.6 (0.8-1.2cm) LVDs 2.6 (2.5-4.0cm) PWs 1.9 (0.8-1.2cm) LVOT Diameter 1.87 (1.8-2.4cm) LVEF(%) 64.5 (>50%) Ao Asc Diam.3.33 cmIVC 13.41 mm FS (%) 34.7 % SV 44.7 ml CO 3.7 L/min M-Mode Dimensions Left Atrium(MM) 4.78 (2.5-4.0cm) Aortic Root 3.43 (2.2-3.7cm) Aortic Valve AoV Peak Giuseppe. 168.0 cm/s AoV VTI 28.1 cm AO Peak GR. 11.3 mmHg AO Mean GR. 7 mmHg LVOT VTI 21.13 cm LVOT Peak Giuseppe. 121.0 cm/s LYNN(VTI)/BSA 2.06 cm2/m2 LYNN (VTI) 2.06 cm2 AI P 1/2 Time 740 ms TDI Lateral E' P. V10.47 cm/s Tricuspid Valve TR P. Velocity 155 cm/s RAP ESTIMATE 10 mmHg TR Peak Gr. 10 mmHg RVSP 20 mmHg LEFT VENTRICLE Normal LV size function. Mild concentric hypertrophy. However LVEF is 65%. RIGHT VENTRICLE Right ventricle is mildly dilated with adequate function. ATRIA Left atrium is moderately dilated. Saline study was performed with 2 IV injections of 10 ccs of agita wseley normal saline at rest, with cough, and with valsalva. Negative saline study for right to left rachell w. AORTIC VALVE Aortic valve is probably trileaflet with mild sclerosis. Trace insufficiency. MITRAL VALVE Moderate mitral annular calcification without stenosis. Trace regurgitation. TRICUSPID VALVE The tricuspid valve is normal in structure with trace regurgitation. PULMONIC VALVE Pulmonic valve is grossly normal in structure with trace insufficiency. GREAT VESSELS Aortic root is grossly normal in size. The ascending aorta is normal in size. IVC is normal i n size. PERICARDIUM Normal pericardium. No effusion. Anterior epicardial fat pad is present. Other Information Study Quality: Fair with poor parasternal and subcostal views. Conclusion However LVEF is 65%. Saline study was performed with 2 IV injections of 10 ccs of agitated normal saline at rest, with cou gh, and with valsalva. Negative saline study for right to left flow. Aortic valve is probably trileaflet with mild sclerosis. Trace insufficiency. Moderate mitral annular calcification without stenosis. Trace regurgitation. The tricuspid valve is normal in structure with trace regurgitation. Pulmonic valve is grossly normal in structure with trace insufficiency. Normal pericardium. No effusion. Anterior epicardial fat pad is present.
== END 2024-09-13 14:00 | DRG 64 ==
LOC: ER 02:12 → ED HOLD 03:35 → ORTHO 4S 05:08
PROVIDERS: ADMIT Internal Medicine Sleep Medicine; ATTEND Family Medicine
PROC: B3251ZZ Computerized Tomography (CT Scan) of Bilateral Common Carotid Arteries using Low Osmolar Contrast (ICD-10-PCS; principal; 2024-09-10)
PROC: B32G1ZZ Computerized Tomography (CT Scan) of Bilateral Vertebral Arteries using Low Osmolar Contrast (ICD-10-PCS; 2024-09-10)
PROC: B32R1ZZ Computerized Tomography (CT Scan) of Intracranial Arteries using Low Osmolar Contrast (ICD-10-PCS; 2024-09-10)
PROC: B3281ZZ Computerized Tomography (CT Scan) of Bilateral Internal Carotid Arteries using Low Osmolar Contrast (ICD-10-PCS; 2024-09-10)
DX: I63.9 Cerebral infarction, unspecified (principal); N17.0 Acute kidney failure with tubular necrosis; I16.0 Hypertensive urgency; I10 Essential (primary) hypertension; M25.362 Other instability, left knee; I48.91 Unspecified atrial fibrillation; R29.704 NIHSS score 4; Z60.2 Problems related to living alone; I71.22 Aneurysm of the aortic arch, without rupture
CPT/HCPCS: 36415; 70450; 70496; 70498; 70551; 71045; 80048; 80053; 80061; 81003; 83036; 83735; 83880; 84132; 84484; 85025; 85610; 85730; 86885; 86900; 86901; 87081; 92508; 92616; 93005; 93306; 96374; 96375; 97116; 97161; 97530; 97535; 99291; G0378; J0360; J2270; J2405; J2470; J7030; Q9967